=== PATIENT | female | born 1950 | race Caucasian/White ===

== ENCOUNTER 2016-10-14 18:16 | Observation (INO) | payer BC, OTHER ==
--- NOTE | ~2016-10-14 | DS ---
Discharge Summary [facility] [address] [place]. [address] NAME: MIGUELITO GLEZ : 50 STATUS : DIS Rosalba PAT#: [id number] AGE: 66 ADM/REG DATE : 10/14/16 MR#: [id number] REPORT SERV DATE: 10/16/16 DICTATED BY: DATE: REPORT STATUS : Draft TRANSCRIBED BY: MODL DATE: 10/15/16 ADMISSION DATE: 10/14/2016 DISCHARGE DATE: 10/15/2016 DISCHARGE DIAGNOSES: 1. Dysarthria, improved. 2. Gait abnormality, improved. 3. Psychosocial stress. 4. Leukocytosis. 5. Type 2 diabetes. 6. Hypothyroidism. 7. History of acute coronary syndrome/ST-elevation myocardial infarction. 8. Poor dentition. CONSULTATIONS: Dr. Diaz Lopes, Neurology. PERTINENT TESTS AND PROCEDURES: 1. CT of brain without contrast, 10/14/2016. Impression: No acute intracranial pathology identified. Small 3 mm old deep white matter infarct, right superior raya radiata. 2. Chest x-ray, 10/14/2016. Impression: The lungs are clear of focal airspace opacities. Heart and mediastinum are normal in size and contour. No pneumothorax or pleural effusion. 3. MRIP/MRI of the brain, limited, 10/15/2016. Impression: No acute intracranial abnormality. 4. MRIP/MRAG of head without contrast, 10/15/2016. Impression: Unremarkable MRA ruby of [place]. 5. MRIP/MRAG of neck without contrast, 10/15/2016. Impression: Unremarkable MRA of neck without contrast. 6. Urinalysis, specimen collected 10/14/2016, result negative. HOSPITAL COURSE: Please refer to history and physical dated 10/15/[address] Earle Senior for complete details pertaining to patient's history and physical and initial presentation upon admission. Please also refer to consultation dated 10/15/[address] Diaz Lopes, Neurology. Briefly, the patient is a 66-year-old female with a past medical history significant for prior CVA with mild residual speech abnormality, coronary artery disease with history of ST- elevation myocardial infarction and stent placement, type 2 diabetes mellitus, uncontrolled, hypothyroidism, and multiple psychosocial stressors. The patient presented to the emergency department on 10/14/2016 with complaints of staggering gait and abnormal speech. According to review of history and physical documentation, the ER physician noted that the patient's speech abnormality or impairment improved drastically resulting in patient able to speak appropriately. Hospitalist Service was asked to admit the patient for further evaluation of TIA versus CVA and Neurology Discharge Summary [address] [address] NAME: MIGUELITO GLEZ : 50 STATUS : DIS Rosalba PAT#: [id number] AGE: 66 ADM/REG DATE : 10/14/16 MR#: [id number] REPORT SERV DATE: 10/16/16 DICTATED BY: DATE: REPORT STATUS : Draft TRANSCRIBED BY: MODL DATE: 10/15/16 Consult. At the time of Neurology evaluation, the patient's dysarthria and gait abnormality had improved to the point of the patient status returning to baseline. The patient still complained of pronunciation difficulty and was noted to have significant psychosocial stress. Diagnostic workup to rule out acute CVA was negative for any acute intracranial pathology. Per Neurology, symptoms likely psychogenic in etiology. Case management was consulted for social issues. Neurology signed off and recommended discharge from neurological standpoint with continuation of home aspirin and statin. Case Management was consulted. The patient requested inpatient rehab referral. The patient did not meet criteria secondary to performance status, returned to baseline during this admission. The patient was referred for outpatient physical and occupational therapy evaluation and treatment as well as speech therapy outpatient evaluation and treatment. The patient complained of gait abnormality. However, was able to ambulate in the wong independently without any assistance. The patient was provided a walker upon discharge for use as needed for gait stability. 1. Dysarthria. Signs and symptoms improved during this admission and the patient is now at baseline. The patient requested referral to outpatient speech therapy for further evaluation and treatment of mild residual dysarthria secondary to CVA several years ago. 2. Gait abnormality. The patient was able to ambulate in the hallway unassisted. The patient did not meet criteria for inpatient rehab. The patient was provided referral for repeat physical therapy and occupational evaluation and treatment. The patient was also provided with a walker to use as needed. 3. Psychosocial stressors. The patient has significant life stressors to include recent home eviction. This is in the setting of depression and anxiety history. Per review of Neurology notes, the patient's complaints of dysarthria and gait abnormality may be psychogenic in nature. The patient currently has support of ruby of friends who are assisting her with her life issues to include providing temporary housing. 4. Leukocytosis. Upon admission, patient's blood white blood cell count elevated to 15.7, day of discharge at 14.8. The patient's procalcitonin was within normal limits. Chest x-ray and urinalysis were nondiagnostic. Source of leukocytosis is unclear. The patient has a history of poor dentition with previous tooth infections and gum inflammation. No indication for antibiotic therapy at this time. The patient is afebrile. 5. Type 2 diabetes mellitus. The patient's A1c is elevated at 11.1. Per review of patient's med list, she is instructed to take metformin 850 mg p.o. twice daily. However, patient states she chooses to take this medication only once daily. The patient was educated to take metformin as prescribed and to follow up with her primary care within one to two weeks for type 2 diabetes mellitus management. 6. Hypothyroidism. Continue taking levothyroxine. 7. History of acute coronary syndrome status post ST-elevation CO and stent placement in 08/2014. Continue home medications. 8. Poor dentition. The patient has a history of multiple tooth infection/inflammatory issues. The patient had this followed up with Dr. Jerry Patel, Oral Surgery, in the Discharge Summary [address] [address] NAME: MIGUELITO GLEZ : 50 STATUS : DIS Rosalba PAT#: [id number] AGE: 66 ADM/REG DATE : 10/14/16 MR#: [id number] REPORT SERV DATE: 10/16/16 DICTATED BY: DATE: REPORT STATUS : Draft TRANSCRIBED BY: MODL DATE: 10/15/16 past and is also is managed by her primary care physician, Dr. George. The patient states she was recently evaluated for lower back left tooth infection. The patient states that she was given antibiotic by her primary care to keep at home in case she starts showing signs or symptoms of tooth infection. The patient was advised to start home antibiotic for any signs or symptoms of infection and to contact, Dr. Jerry Patel, the oral surgeon, for followup within the next one to two weeks due to elevated white count. DISCHARGE CONDITION: At the time of discharge, the patient was hemodynamically stable. DISCHARGE DIET: 1800 calorie ADA diet. DISCHARGE MEDICATIONS: 1. Aspirin 325 mg tablet p.o. daily. 2. Lipitor 20 mg tablet p.o. daily. 3. Cleocin 150 mg tablet p.o. every six hours. The patient is to begin this medication for initial signs and symptoms of any toothache/infection and to contact or oral surgeon and/or PCP immediately for further evaluation and treatment. 4. Klonopin 1 mg tablet p.o. at bedtime. 5. Hydrocodone 7.5/3.5 mg tablet p.o. twice daily as needed. Hold for sedation. 6. Isosorbide mononitrate ER 30 mg tablet p.o. daily. 7. Synthroid 100 mcg p.o. daily. 8. Prinivil 10 mg tablet p.o. daily. 9. Glucophage 850 mg tablet p.o. twice daily. The patient takes this medication once daily, was advised to go back to twice daily as prescribed secondary to elevated A1c. 10.Lopressor 25 mg tablet p.o. daily. 11.NitroQuick 0.4 mg tablet sublingual every five minutes x3 doses as needed for chest pain. DISCHARGE INSTRUCTIONS: 1. Follow up with Dr. Jerry Patel, oral surgeon, within next week for re-evaluation of poor dentition/possible tooth infection. 2. Follow up with Dr. George, PCP, within one to two weeks for a re-evaluation after recent hospital admission to include management of type 2 diabetes in the setting of elevated A1c and recurrent dental inflammation requiring possible surgical evaluation. The patient was instructed to return to the emergency department for any acute signs or symptoms of infection to include fever of 100.4 or greater lasting more than one hour, signs or symptoms of dental infection to include facial swelling, increased dental pain, foul odor from oral cavity, shortness of breath, chest pain, syncopal or near syncopal episodes, or any other changes in neurologic status. DICTATED BY: MELINDA Paez [facility]/GAURAV Discharge Summary [address] [address] NAME: MIGUELITO GLEZ : 50 STATUS : DIS Rosalba PAT#: [id number] AGE: 66 ADM/REG DATE : 10/14/16 MR#: [id number] REPORT SERV DATE: 10/16/16 DICTATED BY: DATE: REPORT STATUS : Draft TRANSCRIBED BY: GAURAV DATE: 10/15/16 Herimla Seth NP-C / [id number] CC: MD Sam Guy II, M.D. Harry Jones, D.D.S. Chun C. Huang, MD Mani Ravee, M.D.
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
[~2016-10-14 18:16] MED LIST: ALPHA-LIPOIC50 MG PO; AMARYL2 PO; AMIT25 PO; AMIT50 PO; ASAB PO; ASABAYER PO; FLEX PO; FORTAMET500 MG PO; GLUCPH PO; KLONO1 PO; LANTUS SC; LEVOTHROID100 MCG PO; LOP25 PO; LORTAB 5 PO; NORCO1 TA2 PO; PLAVIX PO; PRAVAC PO; SYN1 PO; ZOCOR20 PO
[2016-10-14 20:20] LABS: ASCORBIC ACID (UR NOT ORDER) NEG (NEG); BILIRUBIN, URINE NEGATIVE (NEG); ER URINALYSIS TAT 0 Hrs 10 Mins; KETONE, URINE NEGATIVE (NEG); LEUKOCYTE ESTERASE(NOT OR NEG (NEG); NITRITE (URINE) NEG (NEG); WBC (NOT ORDERED) (RFLEX) 2 (0-5)
[2016-10-14 22:42] LABS: BASOPHILS 0.2 %; BASOPHILS ABSOLUTE 0.03 10/3/uL (0.0-0.16); EOSINOPHILS 5.6 %; EOSINOPHILS ABSOLUTE 0.88 10/3/uL (0.0-0.53); HEMATOCRIT 34.3 % (36.0-48.0); HEMOGLOBIN 11.7 g/dL (12.0-16.0); IMMATURE GRANULOCYTES 0.3 %; IMMATURE GRANULOCYTES ABSOLUTE 0.05 10/3/uL (0.0-0.11); MANUAL DIFF NO %; MEAN CORPUS HGB CONC 34.1 g/dL (32.0-36.0); MEAN CORPUSCULAR HEMOGLOB 28.1 pg (26.0-34.0); MEAN CORPUSCULAR VOLUME 82.3 fL (80-100); MEAN PLATELET VOLUME 10.6 fL (9.2-13.0); MONOCYTES 5.4 %; MONOCYTES ABSOLUTE 0.85 10/3/uL (0.21-1.20); NEUTROPHILS 65.5 %; NEUTROPHILS ABSOLUTE 10.24 10/3/uL (2.02-8.40); PLATELET COUNT 319 10/3/uL (150-400); RBC DISTRIBUTION WIDTH 12.9 % (12.0-16.0); RED CELL COUNT 4.17 10/6/uL (4.0-5.6); WHITE BLOOD CELLS 15.7 10/3/uL (4.5-10.5)
[2016-10-14 22:49] LABS: INTERNATIONAL NORMAL RATI 1.1 UNITS (-); PROTIME (NOT ORD) 14.3 SEC (12.0-14.5)
[2016-10-14 22:55] LABS: A/G RATIO 0.9 (0.7-1.9); ALKALINE PHOSPHATASE 154 U/L (45-117); CALCIUM, SERUM 8.3 MG/DL (8.5-10.4); CHLORIDE, SERUM 111 MMOL/L (96-112); CO2 (CARBON DIOXIDE) 23 MMOL/L (24-34); CREATININE 1.16 MG/DL (0.55-1.02); GFR AFRICAN AMERICAN 57 ML/MIN (>=60); GFR NON AFRICAN AMERICAN 49 ML/MIN (>=60); GLOBULIN 3.4 G/DL (2.5-4.1); POTASSIUM, SERUM 4.1 MMOL/L (3.5-5.3); SGOT(AST) 9 U/L (5-40); SGPT(ALT) 15 U/L (5-65); SODIUM, SERUM 141 MMOL/L (135-148); TOTAL BILIRUBIN 0.1 MG/DL (0-1.2); TOTAL PROTEIN 6.4 G/DL (6.0-8.5)
[2016-10-14 22:56] LABS: BUN (BLOOD UREA NITROGEN) 22 MG/DL (6-23); GLUCOSE, SERUM 178 MG/DL (60-99)
[2016-10-14] MEDS ORDERED: HALF81 PO (23:24)
[2016-10-14] MEDS ORDERED: LOP25 PO (23:25)
[2016-10-14] MEDS ORDERED: IMDUR30 PO (23:25)
[2016-10-14] MEDS ORDERED: CLINDA150 PO (23:31)
[2016-10-14] MEDS ORDERED: GLUCPH8 PO (23:33)
[2016-10-14] MEDS ORDERED: SYN1 PO (23:34)
[2016-10-14] MEDS ORDERED: PRIN10 PO (23:35)
[2016-10-14] MEDS ORDERED: KLONO1 PO (23:35)
[2016-10-14] MEDS ORDERED: NORCO1 TA2 PO (23:35)
[2016-10-14] MEDS ORDERED: LIPITOR20 PO (23:36)
[2016-10-14] MEDS ORDERED: NITROQUICK0.4 MG SL (23:37)
[2016-10-15 04:45] LABS: BASOPHILS 0.3 %; BASOPHILS ABSOLUTE 0.04 10/3/uL (0.0-0.16); EOSINOPHILS 6.4 %; EOSINOPHILS ABSOLUTE 0.95 10/3/uL (0.0-0.53); HEMATOCRIT 36.7 % (36.0-48.0); HEMOGLOBIN 12.1 g/dL (12.0-16.0); IMMATURE GRANULOCYTES 0.4 %; IMMATURE GRANULOCYTES ABSOLUTE 0.06 10/3/uL (0.0-0.11); LYMPHOCYTES 23.4 %; LYMPHOCYTES ABSOLUTE 3.46 10/3/uL (0.67-4.30); MEAN CORPUSCULAR HEMOGLOB 27.2 pg (26.0-34.0); MEAN CORPUSCULAR VOLUME 82.5 fL (80-100); MEAN PLATELET VOLUME 10.9 fL (9.2-13.0); MONOCYTES 5.3 %; MONOCYTES ABSOLUTE 0.79 10/3/uL (0.21-1.20); NEUTROPHILS 64.2 %; NEUTROPHILS ABSOLUTE 9.47 10/3/uL (2.02-8.40); PLATELET COUNT 342 10/3/uL (150-400); RBC DISTRIBUTION WIDTH 13.1 % (12.0-16.0); RED CELL COUNT 4.45 10/6/uL (4.0-5.6); WHITE BLOOD CELLS 14.8 10/3/uL (4.5-10.5)
[2016-10-15 04:46] LABS: MANUAL DIFF NO %
[2016-10-15 04:50] LABS: INTERNATIONAL NORMAL RATI 1.1 UNITS (-)
[2016-10-15 04:51] LABS: PARTIAL THROMBO TIME 32.4 SEC (22.5-37.2)
[2016-10-15 05:05] LABS: BUN (BLOOD UREA NITROGEN) 20 MG/DL (6-23); CALCIUM, SERUM 8.9 MG/DL (8.5-10.4); CHLORIDE, SERUM 112 MMOL/L (96-112); CHOLESTEROL 156 MG/DL (< 200); CO2 (CARBON DIOXIDE) 25 MMOL/L (24-34); CREATININE 1.13 MG/DL (0.55-1.02); GFR AFRICAN AMERICAN 59 ML/MIN (>=60); GFR NON AFRICAN AMERICAN 51 ML/MIN (>=60); PHOSPHORUS, SERUM 3.9 MG/DL (2.5-4.5); POTASSIUM, SERUM 3.8 MMOL/L (3.5-5.3); SODIUM, SERUM 143 MMOL/L (135-148); TRIGLYCERIDE 179 MG/DL (< 150); TROPONIN I <0.02 NG/ML (<0.05)
[2016-10-15 05:09] LABS: CHOL/HDL RATIO(NOT ORDER) 4.9 (0-5); CK-MB 0.8 NG/ML; CPK 19 U/L (0-200); GLUCOSE, SERUM 134 MG/DL (60-99); HDL CHOLESTEROL 32 MG/DL (> 49); LDL CHOLESTEROL 89 MG/DL (< 130); NON-HDL CHOLESTEROL 124 MG/DL (< 160); ULTRASENSITIVE TSH 0.052 MCIU/ML (0.358-3.740)
[2016-10-15 14:47] LABS: CPK 19 U/L (0-200); TROPONIN I <0.02 NG/ML (<0.05)
[2016-10-15 14:54] LABS: CK-MB 0.7 NG/ML; FOLATE 15.3 NG/ML (>5.2)
[2016-10-15 15:40] LABS: PROCALCITONIN 0.07 ng/mL (<0.5)
[2016-10-15] MEDS ORDERED: GLUCPH8 PO (16:57)
[2016-12-19] MEDS ORDERED: ASA5GR PO (20:43)
== END 2016-10-15 18:07 | disposition home or self-care (01) ==
LOC: ER 18:16 → CDU1 21:00 → CDU2 10-15 02:08
PROVIDERS: Emergency Medicine; Internal Medicine
DX: R26.9 Unspecified abnormalities of gait and mobility (principal); R47.1 Dysarthria and anarthria; D72.829 Elevated white blood cell count, unspecified; E11.9 Type 2 diabetes mellitus without complications; E03.9 Hypothyroidism, unspecified; F41.9 Anxiety disorder, unspecified; Z79.82 Long term (current) use of aspirin; Z79.891 Long term (current) use of opiate analgesic; Z79.899 Other long term (current) drug therapy; Z88.8 Allergy status to other drugs, medicaments and biological substances; Z88.6 Allergy status to analgesic agent; Z98.890 Other specified postprocedural states
CPT/HCPCS: 70450; 70544; 70547; 70551-52; 71010; 80048; 80053; 80061; 81001; 82550; 82553; 82607; 82746; 82962; 83036; 83735; 84100; 84145; 84443; 84484; 85025; 85610; 85730; 93005; 96372; 99291; A9270-GY; G0378